=== PATIENT | male | born 1965 | race Caucasian/White ===

== ENCOUNTER 2017-10-22 11:32 | Emergency (ER) | payer OTHER ==
[~2017-10-22] VITALS: Ht 177.8 cm; Wt 81.2 kg
[2017-10-22 11:37] VITALS: BP 119/95
== END 2017-10-22 13:15 | disposition home or self-care (01) ==
LOC: EME 11:32
DX: M25.511 Pain in right shoulder (principal)
CPT/HCPCS: 73030; 99281; 99283

== ENCOUNTER 2017-11-21 12:19 | Day surgery (SDC) | payer OTHER ==
[~2017-11-21] VITALS: Ht 176.5 cm; Wt 82.6 kg
[2017-11-21 12:39] VITALS: BP 127/89
[2017-11-21] MEDS ORDERED: TRAMADOL HCL E100 M1 PO (12:45)
[2017-11-21] MEDS ORDERED: PERCOCET 5/31 TABLET PO (12:46)
[2017-11-21 16:27] VITALS: BP 131/85
[2017-11-21 20:26] VITALS: BP 118/75
[2017-11-21 23:43] VITALS: BP 128/72
[2017-11-22 03:26] VITALS: BP 100/63
[2017-11-22 07:10] VITALS: BP 119/69
[2017-11-22] MEDS ORDERED: ASPIRIN EC325 MG PO (09:47)
== END 2017-11-22 10:35 | disposition home or self-care (01) ==
LOC: SDC 12:19 → 2EASTP 14:50 → SDC 14:50 → ENRESERV 15:19 → SDC 15:28 → 2EASTP 15:35 → ENRESERV 15:47 → SDC 16:13 → 2EASTP 11-22 10:35
PROC: 0RRJ0J6 Replacement of Right Shoulder Joint with Synthetic Substitute, Humeral Surface, Open Approach (ICD-10-PCS; principal; 2017-11-21)
DX: M19.011 Primary osteoarthritis, right shoulder (principal); M75.121 Complete rotator cuff tear or rupture of right shoulder, not specified as traumatic; F17.290 Nicotine dependence, other tobacco product, uncomplicated; Z79.891 Long term (current) use of opiate analgesic
CPT/HCPCS: 93005; G0378; J0131; J0690; J1100; J1885; J2250; J2405; J2710; J2765; J2795; J3010; J7030; J7050; J7643